=== PATIENT | male | born 1960 | race African-American/Black ===

== ENCOUNTER 2017-08-31 17:11 | Emergency (ER) | payer OTHER, MEDICARE ==
[~2017-08-31] VITALS: Ht 180.3 cm; Wt 125.6 kg
[~2017-08-31 17:11] MED LIST: APIX5TAB OR; ATEN-60 PO; DOXY100C2 PO; DULO20CA PO; FINA5TAB4 PO; GABA300C10 PO; SILD100T57 PO; TRAM50TA2 PO
[2017-08-31 17:38] VITALS: BP 144/87
[2017-08-31] MEDS ORDERED: ACETAMINOPHEN 500 MG TAB PO ONE (17:45)
== END 2017-08-31 23:52 | disposition left against medical advice (07) ==
LOC: ER 17:19
DX: R05 Cough (principal); J02.9 Acute pharyngitis, unspecified; Z53.21 Procedure and treatment not carried out due to patient leaving prior to being seen by health care provider
CPT/HCPCS: 71046

== ENCOUNTER 2018-04-18 10:31 | Inpatient (IN) | payer MEDICARE, OTHER ==
[~2018-04-18] VITALS: Ht 180.3 cm; Wt 120.5 kg
[2018-04-18] MEDS ORDERED: SODIUM CHLORIDE 0.9% 1,000 ML IV ONE (12:30)
[2018-04-18] MEDS ORDERED: PROMETHAZINE HCL 25 MG/ML 1ML IV ONE (12:30)
[2018-04-18 13:35] LABS: Urine Bacteria FEW /hpf (None Seen); Urine Blood 3+ /uL (Negative); Urine Mucus FEW (None Seen); Urine Specific Gravity 1.016 (1.001-1.035); Urine WBC 10 /hpf (0 - 3)
[2018-04-18] MEDS ORDERED: TEMAZEPAM 15 MG CAP PO PRN (14:45)
[2018-04-18] MEDS ORDERED: ACETAMINOPHEN 500 MG TAB PO PRN (14:45)
[2018-04-18] MEDS ORDERED: MORPHINE SULF INJ 2 MG/ML SYRINGE 1ML IV PRN ×2 (14:45)
[2018-04-18] MEDS ORDERED: PROMETHAZINE HCL 25 MG/ML 1ML IV PRN (14:45)
[2018-04-18] MEDS ORDERED: NITROGLYCERIN 0.4 MG SL TAB SL PRN (14:45)
[2018-04-18] MEDS ORDERED: cefTRIAXone 1GM/10ml IVPUSH 10 ML IV ONE (14:45)
[2018-04-18] MEDS ORDERED: LORazepam 0.5 MG TAB PO PRN (14:45)
[2018-04-18] MEDS: GABAPENTIN 300 MG CAP PO SCH ×2 (14:53→22:03)
[2018-04-18 15:29] LABS: Basophils # (auto) 0.1 uL; Basophils % (auto) 0.8 % (0.0-2.0); Eosinophils # (auto) 0 uL; Eosinophils % (auto) 0.7 % (0.0-7.0); Hematocrit 42.7 % (41.0-53.0); Hemoglobin 14.2 g/dL (13.5-17.5); Lymphocytes # (auto) 0.8 uL; Lymphocytes % (auto) 12.6 % (10.0-50.0); Mean Corpuscular Hgb Conc. 33.3 g/dL (32.0-36.0); Mean Corpuscular Volume 92.9 fL (80.0-100.0); Monocytes # (auto) 0.8 uL; Monocytes % (auto) 13.6 % (0.0-12.0); Neutrophils # (auto) 4.4 uL; Neutrophils % (auto) 72.3 % (37.0-80.0); Platelet Count (auto) 202 10^3/uL (140-450); Red Cell Distribution Width 16.1 % (11.8-14.3); White Blood Cell 6.1 10^3/uL (4.4-10.8)
[2018-04-18 15:44] LABS: INR 1.07 (0.9-1.15); Prothrombin Time 11.4 sec (9.27-12.13)
[2018-04-18 15:46] LABS: Albumin 3.7 g/dL (3.4-5.0); BUN/Creatinine Ratio 11.6; Bilirubin, Total 0.6 mg/dL (0.2-1.0); Calcium 8.3 mg/dL (8.5-10.1); Magnesium 2.8 mg/dL (1.6-2.6); Potassium 3.8 mmol/L (3.5-5.1); Total Protein 7.7 g/dL (6.4-8.2)
[2018-04-18 17:31] VITALS: BP 171/96
[2018-04-18] MEDS: SODIUM CHLORIDE 0.9% 1,000 ML IV SCH (17:56)
[2018-04-18] MEDS: PANTOPRAZOLE 40 MG TAB PO SCH (17:56)
[2018-04-18] MEDS ORDERED: ATENOLOL 25 MG TAB PO ONE (18:00)
[2018-04-18] MEDS: HYDROcodone-ACET 5/325MG TAB PO PRN (18:05)
[2018-04-18 18:09] VITALS: BP 171/96
[2018-04-18] MEDS ORDERED: MELO1TAB73 PO (18:27)
[2018-04-18] MEDS ORDERED: BACL10TA PO (18:27)
[2018-04-18] MEDS ORDERED: TRAZ50TA2 PO (18:27)
[2018-04-18 19:11] LABS: Hematocrit 41.5 % (41.0-53.0); Hemoglobin 13.8 g/dL (13.5-17.5)
[2018-04-18] MEDS ORDERED: ATENOLOL 25 MG TAB PO SCH (22:00)
[2018-04-18] MEDS: FINASTERIDE 5 MG TAB PO SCH (22:03)
[2018-04-18 22:18] VITALS: BP 154/96
[2018-04-19] MEDS: SODIUM CHLORIDE 0.9% 1,000 ML IV SCH ×3 (00:13→20:42)
[2018-04-19 05:35] VITALS: BP 139/80
[2018-04-19 05:56] LABS: Hematocrit 40.8 % (41.0-53.0); Hemoglobin 13.5 g/dL (13.5-17.5)
[2018-04-19] MEDS: GABAPENTIN 300 MG CAP PO SCH ×3 (06:53→21:24)
[2018-04-19 08:46] VITALS: BP 147/86
[2018-04-19] MEDS: cefTRIAXone 1GM/10ml IVPUSH 10 ML IV SCH (09:16)
[2018-04-19] MEDS: PANTOPRAZOLE 40 MG TAB PO SCH (09:17)
[2018-04-19] MEDS: ATENOLOL 25 MG TAB PO SCH (09:19)
[2018-04-19 13:00] VITALS: BP 139/83
[2018-04-19] MEDS: LACTULOSE 20Gm/30ML SOLN PO PRN (13:33)
[2018-04-19 17:00] VITALS: BP 147/96
[2018-04-19] MEDS: FINASTERIDE 5 MG TAB PO SCH (21:24)
[2018-04-19] MEDS: APIXABAN 5 MG TAB PO SCH (21:24)
[2018-04-19 21:47] VITALS: BP 148/86
[2018-04-19] MEDS: HYDROcodone-ACET 5/325MG TAB PO PRN (22:53)
[2018-04-20 04:45] VITALS: BP 126/72
[2018-04-20] MEDS: GABAPENTIN 300 MG CAP PO SCH ×3 (05:39→21:21)
[2018-04-20] MEDS: SODIUM CHLORIDE 0.9% 1,000 ML IV SCH ×2 (06:42→16:42)
[2018-04-20 08:23] VITALS: BP 162/97
[2018-04-20] MEDS: HYDROcodone-ACET 5/325MG TAB PO PRN (09:58)
[2018-04-20] MEDS: LABETALOL HCL 5 MG/ML ML 20ML VIAL IV PRN ×2 (09:59→21:16)
[2018-04-20] MEDS: ATENOLOL 25 MG TAB PO SCH (09:59)
[2018-04-20] MEDS: PANTOPRAZOLE 40 MG TAB PO SCH (09:59)
[2018-04-20] MEDS: cefTRIAXone 1GM/10ml IVPUSH 10 ML IV SCH (09:59)
[2018-04-20] MEDS: APIXABAN 5 MG TAB PO SCH ×2 (10:00→21:21)
[2018-04-20 13:30] VITALS: BP 147/85
[2018-04-20 16:26] VITALS: BP 158/83
[2018-04-20] MEDS: FINASTERIDE 5 MG TAB PO SCH (21:22)
[2018-04-20 22:00] VITALS: BP 154/92
[2018-04-21] MEDS: LACTULOSE 20Gm/30ML SOLN PO PRN (00:02)
[2018-04-21 05:43] VITALS: BP_SYST 136
[2018-04-21] MEDS: GABAPENTIN 300 MG CAP PO SCH ×2 (06:00→14:00)
[2018-04-21] MEDS: SODIUM CHLORIDE 0.9% 1,000 ML IV SCH ×2 (06:42→12:42)
[2018-04-21 09:15] VITALS: BP 150/87
[2018-04-21] MEDS: PANTOPRAZOLE 40 MG TAB PO SCH (09:31)
[2018-04-21] MEDS: ATENOLOL 25 MG TAB PO SCH (09:31)
[2018-04-21] MEDS: LABETALOL HCL 5 MG/ML ML 20ML VIAL IV PRN (09:32)
[2018-04-21] MEDS: HYDROcodone-ACET 5/325MG TAB PO PRN (09:32)
[2018-04-21] MEDS: cefTRIAXone 1GM/10ml IVPUSH 10 ML IV SCH (09:32)
[2018-04-21] MEDS: APIXABAN 5 MG TAB PO SCH (09:41)
[2018-04-21 12:43] VITALS: BP 129/78
== END 2018-04-21 16:10 | disposition home or self-care (01) | DRG 694 ==
LOC: ER 10:31 → EDBD 10:31 → TELE 10:32 → TELE-WESTW 17:20
PROVIDERS: ADMIT Internal Medicine; ATTEND Internal Medicine Pulmonary Disease
DX: N13.30 Unspecified hydronephrosis (principal); N13.8 Other obstructive and reflux uropathy; N39.0 Urinary tract infection, site not specified; E66.9 Obesity, unspecified; I10 Essential (primary) hypertension; N40.1 Benign prostatic hyperplasia with lower urinary tract symptoms; R33.9 Retention of urine, unspecified; I70.8 Atherosclerosis of other arteries; F17.210 Nicotine dependence, cigarettes, uncomplicated; K57.30 Diverticulosis of large intestine without perforation or abscess without bleeding; N41.9 Inflammatory disease of prostate, unspecified; Z82.49 Family history of ischemic heart disease and other diseases of the circulatory system; Z80.1 Family history of malignant neoplasm of trachea, bronchus and lung; Z79.01 Long term (current) use of anticoagulants; Z86.718 Personal history of other venous thrombosis and embolism; Z85.118 Personal history of other malignant neoplasm of bronchus and lung; Z90.49 Acquired absence of other specified parts of digestive tract; Z88.0 Allergy status to penicillin; Z88.1 Allergy status to other antibiotic agents; Z86.711 Personal history of pulmonary embolism; Z68.37 Body mass index [BMI] 37.0-37.9, adult
CPT/HCPCS: 36415; 74176; 76775; 80053; 81001; 83735; 85014; 85018; 85025; 85610; 85730; 87081; 93005; 94761; 96361; 96374; A6257; J0696

== ENCOUNTER 2018-05-02 13:47 | Observation (INO) | payer MEDICARE, OTHER ==
[~2018-05-02] VITALS: Ht 180.3 cm; Wt 120.2 kg
[~2018-05-02 13:47] MED LIST changes: +BACL10TA PO; +MELO1TAB73 PO; +TRAZ50TA2 PO
[2018-05-02] MEDS ORDERED: SODIUM CHLORIDE 0.9% 1,000 ML IVB ONE (14:49)
[2018-05-02 15:02] LABS: Basophils # (auto) 0.1 uL; Basophils % (auto) 1.5 % (0.0-2.0); Eosinophils # (auto) 0.1 uL; Eosinophils % (auto) 1.2 % (0.0-7.0); Hematocrit 45.2 % (41.0-53.0); Lymphocytes # (auto) 1.2 uL; Lymphocytes % (auto) 26.4 % (10.0-50.0); Mean Corpuscular Hemoglobin 30.5 pg (28.0-32.0); Mean Corpuscular Hgb Conc. 33.2 g/dL (32.0-36.0); Mean Corpuscular Volume 91.9 fL (80.0-100.0); Monocytes # (auto) 0.7 uL; Monocytes % (auto) 15.1 % (0.0-12.0); Neutrophils # (auto) 2.6 uL; Neutrophils % (auto) 55.8 % (37.0-80.0); Nucleated Red Blood Cells % 0.1 %; Platelet Count (auto) 180 10^3/uL (140-450); Red Blood Cells 4.92 10^6/uL (4.5-5.90); Red Cell Distribution Width 16.4 % (11.8-14.3); White Blood Cell 4.6 10^3/uL (4.4-10.8)
[2018-05-02 15:19] LABS: Alanine Aminotransferase 25 U/L (16-61); Albumin 4.1 g/dL (3.4-5.0); Alkaline Phosphatase 88 U/L (45-117); Anion Gap 5 (5-15); Aspartate Aminotransferase 15 U/L (15-37); BUN/Creatinine Ratio 14.4; Bilirubin, Total 0.6 mg/dL (0.2-1.0); Blood Urea Nitrogen 18 mg/dL (7-18); Calcium 8.7 mg/dL (8.5-10.1); Carbon Dioxide 26 mmol/L (21-32); Chloride 106 mmol/L (98-107); GFR African American 77 mL/min; GFR Non-African American 63 mL/min; Glucose 81 mg/dL (74-106); Magnesium 2.8 mg/dL (1.6-2.6); Potassium 3.7 mmol/L (3.5-5.1); Sodium 137 mmol/L (136-145); Total Protein 8.2 g/dL (6.4-8.2)
[2018-05-02 15:36] LABS: INR 1.07 (0.9-1.15); Partial Thromboplastin Time 32.5 sec (23.78-33.04); Prothrombin Time 11.4 sec (9.27-12.13)
[2018-05-02 18:57] LABS: Urine Bacteria NONE SEEN /hpf (None Seen); Urine Blood 2+ /uL (Negative); Urine Mucus FEW (None Seen); Urine WBC 41 /hpf (0 - 3)
[2018-05-02] MEDS ORDERED: cefTRIAXone 1GM/10ml IVPUSH 10 ML IV ONE (20:00)
[2018-05-02 20:05] VITALS: BP 155/92
== END 2018-05-02 21:09 | disposition home or self-care (01) | DRG 689 ==
LOC: ER 13:47 → OVERFLOW 13:48 → ER 21:09
PROVIDERS: ADMIT Family Medicine; ATTEND Family Medicine
DX: N30.00 Acute cystitis without hematuria (principal); I26.99 Other pulmonary embolism without acute cor pulmonale; I82.409 Acute embolism and thrombosis of unspecified deep veins of unspecified lower extremity; M54.5 Low back pain; M48.00 Spinal stenosis, site unspecified; I10 Essential (primary) hypertension; N40.0 Benign prostatic hyperplasia without lower urinary tract symptoms; F17.210 Nicotine dependence, cigarettes, uncomplicated; Z88.1 Allergy status to other antibiotic agents; Z88.0 Allergy status to penicillin; Z87.442 Personal history of urinary calculi
CPT/HCPCS: 36415; 71045; 72131; 74176; 80053; 81001; 83735; 84484; 85025; 85610; 85730; 93005; 93970; 96374; 99285; G0378; J0696; J7030